=== PATIENT | female | born 1985 | race African-American/Black ===

== ENCOUNTER 2016-10-31 14:18 | Emergency (ER) | payer SELFPAY ==
[~2016-10-31 14:18] MED LIST: ALPR0.5T PO; HYDR-971 PO; IBUP-1060 PO
[2016-10-31 14:20] VITALS: BP 132/80
--- NOTE | 2016-10-31 14:48 | PHYS DOC ---
Past Medical History Past Medical History: No Pertinent History Past Surgical History: No Surgical History Alcohol Use: Occasionally Drug Use: None Adult General Chief Complaint Chief Complaint: PAIN ON URINATION HPI HPI Patient is a 31 year old presents emergency department stating that she's been having yellow vaginal discharge for the last week. She states for the last 2-3 days she's been having urinary frequency urgency or pain with urination. She states that she had increased her water intake as well as cranberry juice intake. She states this has not helped with the urinary symptoms. She denies any blood being in the urine. Patient denies any fever, chills or any nausea vomiting. She does state she sexually active with one partner without protection. She is worried about STDs. Review of Systems Review of Systems Constitutional: Denies fever or chills [] Eyes: Denies change in visual acuity, redness, or eye pain [] HENT: Denies nasal congestion or sore throat [] Respiratory: Denies cough or shortness of breath [] Cardiovascular: No additional information not addressed in HPI [] GI: Denies abdominal pain, nausea, vomiting, bloody stools or diarrhea [] : dysuria denies hematuria [] Musculoskeletal: Denies back pain or joint pain [] Integument: Denies rash or skin lesions [] Neurologic: Denies headache, focal weakness or sensory changes [] Current Medications Current Medications Current Medications Medications (Trade) Dose Ordered Sig/Johnny Start Time Stop Time Status Last Admin Dose Admin Azithromycin (Zithromax) 1,000 mg 1X ONCE 10/31/16 15:00 10/31/16 15:01 DC Ceftriaxone Sodium (Rocephin Im) 250 mg 1X ONCE 10/31/16 15:00 10/31/16 15:01 DC Metronidazole (Flagyl) 2,000 mg 1X ONCE 10/31/16 15:00 10/31/16 15:01 DC Allergies Allergies Allergies Coded Allergies Type Severity Reaction Last Updated Verified No Known Drug Allergies 08/08/15 No Physical Exam Physical Exam Constitutional: Well developed, well nourished, no acute distress, non-toxic appearance. [] HENT: Normocephalic, atraumatic, bilateral external ears normal, oropharynx moist, no oral exudates, nose normal. [] Eyes: PERRLA, EOMI, conjunctiva normal, no discharge. [] Neck: Normal range of motion, no tenderness, supple, no stridor. [] Cardiovascular:Heart rate regular rhythm, no murmur [] Lungs & Thorax: Bilateral breath sounds clear to auscultation [] Abdomen: Bowel sounds hypoactive, soft, no tenderness, no masses, no pulsatile masses. [] Skin: Warm, dry, no erythema, no rash. [] Back: No tenderness, no CVA tenderness. [] Extremities: No tenderness, no cyanosis, no clubbing, ROM intact, no edema. [] Neurologic: Alert and oriented X 3, normal motor function, normal sensory function, no focal deficits noted. [] Psychologic: Affect normal, judgement normal, mood normal. [] Vaginal exam: speculum exam with blood and white thick discharge noted in the vaginal vault. Manual exam: bilateral adnexal tenderness noted no CMT noted. Current Patient Data Vital Signs Vital Signs Date Time Temp Pulse Resp B/P Pulse Ox O2 Delivery O2 Flow Rate FiO2 10/31/16 14:20 98.2 69 18 100 Room Air 98.2 Lab Values Laboratory Tests Test 10/31/16 13:38 Urine Collection Type Void Urine Color Yellow Urine Clarity Clear Urine pH 6.0 Urine Specific Rainbow 1.025 Urine Protein Negativemg/dL (NEG-TRACE) Urine Glucose (UA) Negativemg/dL (NEG) Urine Ketones (Stick) Negativemg/dL (NEG) Urine Blood Trace (NEG) Urine Nitrite Negative (NEG) Urine Bilirubin Negative (NEG) Urine Urobilinogen Dipstick 1.0mg/dL (0.2 mg/dL) Urine Leukocyte Esterase Moderate (NEG) Urine RBC 1-2/HPF (0-2) Urine WBC 11-20/HPF (0-4) Urine Squamous Epithelial Cells Many/LPF Urine Bacteria Moderate/HPF (0-FEW) Urine Mucus Marked/LPF Microbiology 10/31/16 Wet Prep - Final, Complete EKG EKG [] Radiology/Procedures Radiology/Procedures [] Course & Med Decision Making Course & Med Decision Making Pertinent Labs and Imaging studies reviewed. (See chart for details) Patient with a positive urinalysis. Patient was positive for bacterial vaginosis. Due to the bilateral adnexal tenderness she will also be treated for PID. Patient was provided with signs and symptoms to return back to the emergency department. She was treated for STDs here in the emergency department as she was concerned for this. Patient agrees with discharge instructions treatment regimens and follow-up recommendations. [] Dragon Disclaimer Dragon Disclaimer This electronic medical record was generated, in whole or in part, using a voice recognition dictation system. Departure Departure Impression: Primary Impression: Bacterial vaginosis Additional Impressions: Urinary tract infection PID (acute pelvic inflammatory disease) Disposition: 01 HOME, SELF-CARE Condition: STABLE Referrals: DEV BERMAN MD (PCP) Patient Instructions: Bacterial Vaginosis, [id number]-[id number], Pelvic Inflammatory Disease, [id number], Urinary Tract Infection, Mgnj-ib-Dtls Additional Instructions: Activity as tolerated Medication as prescribed Avoid sexual intercourse for the next 2 weeks Drink plenty of fluids such as water and cranberry juice Avoid cranberry juice cocktail, carbonated beverages, caffeine, citrus fruits, alcohol as these are considered irritants to the bladder. Your cultures for STD will come back in approximately 3-4 days. You will be notified if the results are positive. Follow-up to primary care physician in the next 7-10 days to make sure you cleared the urinary tract infection. Return back to emergency prior signs symptoms of become worse. Scripts Nitrofurantoin Monohyd/M-Cryst (Macrobid 100 Mg Capsule)100 Mg Capsule1 Cap PO BID #14 CAP Prov:MARIA LUISA SOUZA APRN 10/31/16 Metronidazole (Flagyl)500 Mg Tablet1 Tab PO BID #14 TAB Prov:MARIA LUISA SOUZA APRN 10/31/16 Doxycycline Hyclate 100 Mg Capsule1 Cap PO BID #28 CAP Prov:MARIA LUISA SOUZA APRN 10/31/16 Problem Qualifiers MARIA LUISA SOUZA APRN Oct 31, 2016 14:48
[2016-10-31 14:53] LABS: BILIRUBIN,URINE NEGATIVE (NEG); GLUCOSE,URINE NEGATIVE (NEG); NITRITE,URINE NEGATIVE (NEG); PROTEIN,URINE NEGATIVE (NEG-TRACE)
[2016-10-31] MEDS ORDERED: METRONIDAZOLE 500 MG TABLET. PO ONE (15:00)
[2016-10-31] MEDS ORDERED: CEFTRIAXONE IM 250 MG VIAL. IM ONE (15:00)
[2016-10-31] MEDS ORDERED: AZITHROMYCIN 250 MG TABLET. PO ONE (15:00)
[2016-10-31 15:01] LABS: BACTERIA,URINE MODERATE /HPF (0-FEW); SQUAMOUS EPITHELIAL CELL,UR MANY /LPF
[2016-10-31] MEDS ORDERED: DOXY100C2 PO (15:26)
[2016-10-31] MEDS ORDERED: METR500T PO (15:26)
[2016-10-31] MEDS ORDERED: NITR100C62 PO (15:26)
[2016-10-31] MEDS ORDERED: PHEN100T82 PO (15:28)
== END 2016-10-31 15:55 | disposition home or self-care (01) ==
LOC: ER 14:18
DX: N76.0 Acute vaginitis (principal); N39.0 Urinary tract infection, site not specified; N73.9 Female pelvic inflammatory disease, unspecified
CPT/HCPCS: 81001; 81025; 87086; 87491; 87591; 96372; 99284; J0696; Q0111; Q0144

== ENCOUNTER 2018-02-14 20:01 | Emergency (ER) | payer OTHER ==
[2018-02-14] MEDS: HYDROcodone/APAP 5/325MG 1 TAB TABLET PO (21:16)
[2018-02-14] MEDS: ASPIRIN 325 MG TABLET PO (21:16)
[2018-02-14] MEDS: CYCLOBENZAPRINE 10 MG TABLET. PO (21:16)
[2018-02-14 21:38] LABS: URINE HCG POC HCG NEGATIVE (Negative)
[2018-02-14 21:39] LABS: ADD MAN DIFF? NO
[2018-02-14 21:42] LABS: BASO # 0.1 x10^3/uL (0.0-0.2); BASO % 1 % (0-3); BILIRUBIN,URINE NEGATIVE (NEG); CLARITY,URINE CLEAR; COLOR,URINE YELLOW; EOS # 0.1 x10^3/uL (0.0-0.7); EOS % 1 % (0-3); GLUCOSE,URINE NEGATIVE (NEG); HEMATOCRIT 42.1 % (36.0-47.0); HEMOGLOBIN 14.3 g/dL (12.0-15.5); LYMPH # 3.1 x10^3/uL (1.0-4.8); LYMPH % 25 % (24-48); MEAN CORPUSCULAR HEMOGLOBIN 30 pg (25-35); MEAN CORPUSCULAR HGB CONC 34 g/dL (31-37); MEAN CORPUSCULAR VOLUME 87 fL (79-100); MONO # 0.7 x10^3/uL (0.0-1.1); MONO % 6 % (0-9); NEUT # 8.4 x10^3uL (1.8-7.7); NEUT % 68 % (31-73); NITRITE,URINE NEGATIVE (NEG); PLATELET COUNT 265 x10^3/uL (140-400); PROTEIN,URINE NEGATIVE (NEG-TRACE); RED BLOOD COUNT 4.84 x10^6/uL (3.50-5.40); RED CELL DISTRIBUTION WIDTH 13.7 % (11.5-14.5); WHITE BLOOD COUNT 12.5 x10^3/uL (4.0-11.0)
[2018-02-14 21:49] LABS: BACTERIA,URINE FEW /HPF (0-FEW); RBC,URINE 0 /HPF (0-2); SQUAMOUS EPITHELIAL CELL,UR MOD /LPF
[2018-02-14 21:56] LABS: D-DIMER 1.78 ug/mlFEU (0.00-0.50)
[2018-02-14 21:57] LABS: AMPHETAMINE/METHAMPHETAMINE NEG (NEG); BARBITURATES NEG (NEG); BENZODIAZEPINES NEG (NEG); CANNABINOIDS NEG (NEG); COCAINE NEG (NEG); ETHANOL, URINE NEG (NEG); METHADONE NEG (NEG); OPIATES NEG (NEG); PHENCYCLIDINE NEG (NEG)
[2018-02-14 22:00] LABS: ANION GAP 9 (6-14); BLOOD UREA NITROGEN 13 mg/dL (7-20); CALCIUM 8.9 mg/dL (8.5-10.1); CARBON DIOXIDE 29 mmol/L (21-32); CHLORIDE 102 mmol/L (98-107); GFR 78.8; GLUCOSE 105 mg/dL (70-99); POTASSIUM 3.8 mmol/L (3.5-5.1); SODIUM 140 mmol/L (136-145)
[2018-02-14 22:03] LABS: TROPONINI < 0.017 ng/mL (0.000-0.055)
[2018-02-14] MEDS ORDERED: CONTRAST GIVEN. MC (22:15)
[2018-02-14 22:18] LABS: NT-PRO BNP 59 pg/mL (0-124)
[2018-02-14 22:18] LABS: CKMB MASS < 0.5 ng/mL (0.0-3.6); CREATINE KINASE 49 U/L (26-192)
[2018-02-14] MEDS: IOHEXOL 300 MG/ML 100ML VIAL. IV (22:22)
== END 2018-02-14 23:45 | disposition home or self-care (01) ==
LOC: ER 23:45
DX: R07.89 Other chest pain (principal); N63.0 Unspecified lump in unspecified breast
CPT/HCPCS: 36415; 71045; 71275; 80048; 80307; 81001; 81025; 82553; 83735; 83880; 84484; 85025; 85379; 87086; 93005; 99285-25; Q9967

== ENCOUNTER 2018-02-15 19:26 | Emergency (ER) | payer OTHER ==
[2018-02-15 20:23] LABS: ADD MAN DIFF? NO
[2018-02-15 20:25] LABS: BASO # 0.1 x10^3/uL (0.0-0.2); BASO % 1 % (0-3); EOS # 0.1 x10^3/uL (0.0-0.7); EOS % 1 % (0-3); HEMATOCRIT 42.9 % (36.0-47.0); HEMOGLOBIN 14.7 g/dL (12.0-15.5); LYMPH # 2.9 x10^3/uL (1.0-4.8); LYMPH % 29 % (24-48); MEAN CORPUSCULAR HEMOGLOBIN 30 pg (25-35); MEAN CORPUSCULAR HGB CONC 34 g/dL (31-37); MEAN CORPUSCULAR VOLUME 86 fL (79-100); MONO # 0.7 x10^3/uL (0.0-1.1); MONO % 7 % (0-9); NEUT # 6.3 x10^3uL (1.8-7.7); NEUT % 62 % (31-73); PLATELET COUNT 260 x10^3/uL (140-400); RED BLOOD COUNT 4.96 x10^6/uL (3.50-5.40); RED CELL DISTRIBUTION WIDTH 13.9 % (11.5-14.5); WHITE BLOOD COUNT 10.1 x10^3/uL (4.0-11.0)
[2018-02-15] MEDS: diphenhydrAMINE 50 MG/ML VIAL IVP (20:38)
[2018-02-15] MEDS: KETOROLAC 30 MG/ML INJ. IV (20:38)
[2018-02-15] MEDS: IV NORMAL SALINE 1000ML BAG 1,000 ML IV (20:38)
[2018-02-15] MEDS: DEXAMETHASONE SOD PHOS 20 MG/5 ML VIAL. IV (20:38)
[2018-02-15] MEDS: METOCLOPRAMIDE HCL 10 MG/2 ML VIAL. IV (20:38)
[2018-02-15 20:39] LABS: ANION GAP 7 (6-14); BLOOD UREA NITROGEN 9 mg/dL (7-20); BUN/CREATININE RATIO 10 (6-20); CALCIUM 9.6 mg/dL (8.5-10.1); CARBON DIOXIDE 28 mmol/L (21-32); CHLORIDE 103 mmol/L (98-107); CREATININE 0.9 mg/dL (0.6-1.0); GLUCOSE 100 mg/dL (70-99); SODIUM 138 mmol/L (136-145)
[2018-02-15 20:44] LABS: ALBUMIN 3.6 g/dL (3.4-5.0); ALBUMIN/GLOBULIN RATIO 0.8 (1.0-1.7); ALK PHOS 70 U/L (46-116); ALT (SGPT) 20 U/L (14-59); AST (SGOT) 13 U/L (15-37); TOTAL BILIRUBIN 0.3 mg/dL (0.2-1.0)
== END 2018-02-15 22:27 | disposition home or self-care (01) ==
LOC: ER 19:26
DX: R42 Dizziness and giddiness (principal); R51 Headache
CPT/HCPCS: 36415; 80053; 83735; 85025; 93005; 96361; 96374; 96375; 99285-25; J1100; J1200; J1885; J2765; J7030

== ENCOUNTER 2019-02-13 19:15 | Emergency (ER) | payer OTHER ==
[~2019-02-13] VITALS: Ht 175.3 cm; Wt 127.0 kg
[~2019-02-13 19:15] MED LIST changes: +AZIT500T4 PO; +BUTA1TAB23 PO; +CEFI200S PO; +DOXY100C2 PO; +FLUC150T PO; +HYDR-3164 PO; -HYDR-971 PO; +METR500T PO; +NAPR-683 PO; +NITR100C62 PO; +ONDA4TAB7 PO; +PHEN100T82 PO
[2019-02-13 20:42] VITALS: BP 132/80
[2019-02-13] MEDS ORDERED: BENZ100C PO (20:49)
--- NOTE | 2019-02-13 20:49 | PHYS DOC ---
Past Medical History Past Medical History: Ovarian Cyst, Uterine Fibroids Additional Past Medical Histor: FIBROIDS (MIRLANDE CRANDALL APRN) Past Surgical History: Other Additional Past Surgical Histo: FIBROIDS REMOVED (MIRLANDE CRANDALL APRN) Alcohol Use: Occasionally Drug Use: None (MIRLANDE CRANDALL APRN) Adult General Chief Complaint Chief Complaint: SORE THROAT HPI HPI Patient is a 33 year old [female] who presents with [sore throat and mild cough. Patient reports she has had the symptoms for the last 2 weeks. Reports when symptoms first started she had taken several different medications, which did seem to help her discomfort, she says she woke and extend without any more pus pockets and she had felt better to 3 days later. Reports since that time, she is continued to have a mild, dry cough. Reports it is worse at night, but does happen throughout the day. denies any fevers states she has been trying some very: And other fjhn-ftn-vtwgfog cough medicines which have seemed to help her coughing somewhat but have not stopped her coughing] (MIRLANDE CRANDALL APRN) Review of Systems Review of Systems Constitutional: Denies fever or chills [] Eyes: Denies change in visual acuity, redness, or eye pain [] HENT: Denies nasal congestion reports she has had a sore throat for 2 weeks[] Respiratory: Reports dry, nonproductive cough denies shortness of breath [] Cardiovascular: No additional information not addressed in HPI [] GI: Denies abdominal pain, nausea, vomiting, bloody stools or diarrhea [] : Denies dysuria or hematuria [] Musculoskeletal: Denies back pain or joint pain [] Integument: Denies rash or skin lesions [] Neurologic: Denies headache, focal weakness or sensory changes [] Endocrine: Denies polyuria or polydipsia [] All other systems were reviewed and found to be within normal limits, except as documented in this note. (MIRLANDE CRANDALL APRN) Allergies Allergies Allergies Coded Allergies Type Severity Reaction Last Updated Verified No Known Drug Allergies 08/08/15 No (WILEY CUENCA MD) Physical Exam Physical Exam Constitutional: Well developed, well nourished, no acute distress, non-toxic appearance. [] HENT: Normocephalic, atraumatic, bilateral external ears normal, oropharynx moist, no oral exudates, nose normal. Tonsils 1+, no erythema, no exudates, uvula midline. Minimal amount of postnasal drainage noted posteriorly. [] Eyes: PERRLA, EOMI, conjunctiva normal, no discharge. [] Neck: Normal range of motion, no tenderness, supple, no stridor. [] Cardiovascular:Heart rate regular rhythm, no murmur [] Lungs & Thorax: Bilateral breath sounds clear to auscultation, occasional faint dry cough noted. [] Abdomen: Bowel sounds normal, soft, no tenderness, no masses, no pulsatile masses. [] Skin: Warm, dry, no erythema, no rash. [] Back: No tenderness, no CVA tenderness. [] Extremities: No tenderness, no cyanosis, no clubbing, ROM intact, no edema. [] Neurologic: Alert and oriented X 3, normal motor function, normal sensory function, no focal deficits noted. [] Psychologic: Affect normal, judgement normal, mood normal. [] (MIRLANDE CRANDALL APRN) Current Patient Data Vital Signs Vital Signs Date Time Temp Pulse Resp B/P (MAP) Pulse Ox O2 Delivery O2 Flow Rate FiO2 02/13/19 20:42 99.0 91 18 132/80 (97) 99 Room Air 99.0 (WILEY CUENCA MD) EKG EKG [] (MIRLANDE CRANDALL APRN) Radiology/Procedures Radiology/Procedures [] (MIRLANDE CRANDALL APRN) Course & Med Decision Making Course & Med Decision Making Pertinent Labs and Imaging studies reviewed. (See chart for details) [Discussed findings with patient, discussed consideration for Tessalon Perles, finished agreement to try them. Discussed continued use of medicines. Discussed considering use of Flonase or Zyrtec or other decongestant as well to help clear postnasal drip which may be causing her cough. Discussed following up with primary care for further considerations for further concerns in agreement without questions] (MIRLANDE CRANDALL APRN) Course & Med Decision Making Staff Physician Addendum: I was working in the ER during the course of this patient's visit. I was available for consultation as needed, but I was not directly involved in the care of this patient. (WILEY CUENCA MD) Dragon Disclaimer Dragon Disclaimer This electronic medical record was generated, in whole or in part, using a voice recognition dictation system. (MIRLANDE CRANDALL APRN) Departure Departure Impression: Primary Impression: Cough Additional Impression: Post-nasal drainage Disposition: 01 HOME, SELF-CARE Condition: GOOD Referrals: UNKNOWN PCP NAME (PCP) Patient Instructions: Cough, Adult Additional Instructions: As we discussed, he can consider using Flonase or Zyrtec or Claritin some Ativan as a decongestant to help decrease her postnasal drip which may be causing some of her cough. You can use the cough medications, Tessalon Perles, as prescribed for your cough. He may take some time to get over the cough and feel better. Follow-up with her primary care provider for other concerns Scripts Benzonatate (TESSALON PERLE) 100 Mg Capsule 100 MG PO TID PRN for COUGH for 7 Days, #21 CAP Prov: MIRLANDE CRANDALL APRN 02/13/19 Problem Qualifiers MIRLANDE CRANDALL APRN Feb 13, 2019 20:49 WILEY CUENAC MD Feb 14, 2019 21:45
== END 2019-02-13 21:07 | disposition home or self-care (01) ==
LOC: ER 19:15
DX: R05 Cough (principal); R09.82 Postnasal drip; J02.9 Acute pharyngitis, unspecified
CPT/HCPCS: 99283

== ENCOUNTER → 2020-01-26 | Outpatient (CLI) | payer BC, OTHER ==
[~2020-01-26] MED LIST changes: +BENZ100C PO
== END | disposition home or self-care (01) ==
LOC: LAB 13:35
PROVIDERS: ATTEND Obstetrics & Gynecology
DX: Z01.818 Encounter for other preprocedural examination (principal); Z11.59 Encounter for screening for other viral diseases; N92.0 Excessive and frequent menstruation with regular cycle
CPT/HCPCS: U0003-CS

== ENCOUNTER 2020-02-01 08:50 | Observation (INO) | payer BC ==
[~2020-02-01] VITALS: Ht 167.6 cm; Wt 136.0 kg
[2020-02-01] VITALS (9 sets, daily range): BP systolic 102–128; BP diastolic 62–72
[~2020-02-01 08:50] MED LIST changes: +ASPI1TAB31 PO; +HYDROmorphone 2 MG/ML VIAL IV PRN; +IV RINGERS,LACTATED 1000ML 1,000 ML IV SCH; +LIDOCAINE 1% PF 2 ML VIAL. ID PRN; +LORA10TA55 PO; +METHYLENE BLUE 0.5% 10ml AMPULE. ONE; +MORPHINE SULFATE 2 MG/ML VIAL. IV PRN; +PROCHLORPERAZINE 10 MG/2 ML VIAL. IV PRN; +ceFAZolin SODIUM 3 GM in IV DEXTROSE 5% 100ML 100 ML IV PRN; +fentaNYL PF VIAL 100 MCG/2 ML VIAL IV PRN
[2020-02-01] MEDS ORDERED: PROPOFOL 10 MG/ML (20ML) VIAL. IV ONE (09:19)
[2020-02-01] MEDS ORDERED: DEXAMETHASONE SOD PHOS 4 MG/ML VIAL ONE (09:19)
[2020-02-01] MEDS ORDERED: ONDANSETRON PF 4 MG/2 ML VIAL. ONE (09:19)
[2020-02-01] MEDS ORDERED: LIDOCAINE 2% PF 5 ML VIAL. ONE (09:19)
[2020-02-01] MEDS ORDERED: SEVOFLURANE 61 TO 120 MINUTES. IH ONE (09:19)
[2020-02-01] MEDS ORDERED: KETOROLAC 30 MG/ML VIAL. ONE (09:19)
[2020-02-01] MEDS ORDERED: ROCURONIUM 50 MG/5 ML VIAL. ONE ×2 (09:20→12:11)
[2020-02-01] MEDS ORDERED: fentaNYL PF VIAL 100 MCG/2 ML VIAL ONE ×2 (09:20→15:07)
[2020-02-01] MEDS ORDERED: MIDAZOLAM HCL/PF 2 MG/2 ML VIAL. ONE (09:29)
[2020-02-01 09:48] LABS: BASO % 1 % (0-3); EOS % 1 % (0-3); HEMATOCRIT 40.6 % (36.0-47.0); HEMOGLOBIN 13.5 g/dL (12.0-15.5); LYMPH # 2.2 x10^3/uL (1.0-4.8); LYMPH % 26 % (24-48); MEAN CORPUSCULAR HEMOGLOBIN 28 pg (25-35); MEAN CORPUSCULAR HGB CONC 33 g/dL (31-37); MEAN CORPUSCULAR VOLUME 84 fL (79-100); MONO # 0.5 x10^3/uL (0.0-1.1); MONO % 6 % (0-9); NEUT % 68 % (31-73); PLATELET COUNT 269 x10^3/uL (140-400); RED BLOOD COUNT 4.81 x10^6/uL (3.50-5.40); RED CELL DISTRIBUTION WIDTH 14.6 % (11.5-14.5); WHITE BLOOD COUNT 8.8 x10^3/uL (4.0-11.0)
[2020-02-01] MEDS ORDERED: HYDROmorphone 2 MG/ML VIAL ONE (12:44)
[2020-02-01] MEDS ORDERED: NEOSTIGMINE METHYLSULFATE 5 MG/5 ML SYRINGE. ONE (12:47)
[2020-02-01] MEDS ORDERED: GLYCOPYRROLATE 1 MG/5 ML VIAL. ONE (12:47)
[2020-02-01] MEDS ORDERED: oxyCODONE/APAP 5/325 1 TAB TABLET PO PRN (14:30)
[2020-02-01] MEDS ORDERED: diphenhydrAMINE 50 MG/ML VIAL IV PRN (14:30)
[2020-02-01] MEDS ORDERED: diphenhydrAMINE HCL 25 MG CAPSULE PO PRN (14:30)
[2020-02-01] MEDS ORDERED: NALOXONE 0.4 MG/ML VIAL. IV PRN (14:30)
[2020-02-01] MEDS ORDERED: IV NORMAL SALINE 1000ML BAG 1,000 ML IV SCH (14:30)
[2020-02-01] MEDS ORDERED: MORPHINE SULFATE 2 MG/ML VIAL. IV PRN ×2 (14:30)
[2020-02-01] MEDS ORDERED: 0.9 % SODIUM CHLORIDE 10 ML DISP.SYRIN. IV PRN (14:30)
[2020-02-01] MEDS ORDERED: DEXTROSE 50% 25 GM / 50ML DISP.SYRIN. IV PRN (14:30)
[2020-02-01] MEDS ORDERED: IBUPROFEN 200 MG TABLET. PO PRN (14:30)
--- NOTE | 2020-02-01 14:52 | PDOC4 ---
OPERATIVE NOTE: PreOp Dx: 1. Menorrhagia, 2. Dysmenorrhea, 3. Fibroids, 4. Irregular periods PostOp Dx: same PROCEDURE: Laparoscopic-assisted vaginal hysterectomy with bilateral salpingectomy. ANESTHESIA: General endotracheal intubation. ESTIMATED BLOOD LOSS: 750 mL. URINE OUTPUT: Clear. FINDINGS: Normal uterus, tubes, and ovaries COMPLICATIONS: None. SPECIMENS REMOVED: Uterus, tubes, and cervix. POLA COSTELLO MD Feb 01, 2020 14:52
[2020-02-01] MEDS ORDERED: PROCHLORPERAZINE 10 MG/2 ML VIAL. ONE (15:07)
[2020-02-01] MEDS: IV DEXTROSE 5 %-0.45 % NACL 1,000 ML IV SCH ×2 (15:10→20:11)
--- NOTE | 2020-02-01 15:16 | OP ---
DATE OF SURGERY: 02/01/2020 PREOPERATIVE DIAGNOSES: 1. Menorrhagia. 2. Dysmenorrhea. 3. Fibroids. 4. Irregular periods. POSTOPERATIVE DIAGNOSES: 1. Menorrhagia. 2. Dysmenorrhea. 3. Fibroids. 4. Irregular periods. PROCEDURE: Laparoscopic-assisted vaginal hysterectomy with bilateral salpingectomy. ANESTHESIA: General endotracheal intubation. ESTIMATED BLOOD LOSS: 750 mL. URINE OUTPUT: Clear. FINDINGS: Normal uterus, tubes and ovaries. COMPLICATIONS: None. SPECIMENS REMOVED: Uterus, tubes, and cervix. DESCRIPTION OF PROCEDURE: The patient was taken to the operating room where general endotracheal intubation was obtained without difficulty. The patient was prepped and draped in normal sterile fashion. Attention was first turned to the vagina where a speculum was placed to visualize the cervix. The anterior lip of the cervix was then grasped with a single tooth tenaculum and acorn uterine manipulator was then placed into the uterine cavity. At that point, a Langley catheter was placed in the patient's bladder. Attention was then turned to the abdomen where a 5 mm skin incision was made in her infraumbilical fold. At that point, a Veress needle was introduced into the incision. The abdomen was then insufflated to 15 mmHg. At that point, Veress needle was removed and a 5 mm trocar was then placed directly into the abdomen. Placement was confirmed with the laparoscope. At that point, a second trocar was then placed on the left approximately two-thirds between ischial spine and umbilicus first by making a 5 mm skin incision, then by placing a 5 mm trocar under direct visualization of the laparoscope. Attention was then turned to the right where a 5 mm trocar was then placed in similar fashion, two-thirds between the ischial spine and the umbilicus by first making a 5 mm skin incision and then placing the 5-mm trocar under direct visualization of the laparoscope. Visualization of the pelvis revealed relatively normal anatomy. At that point, attention was turned to the left where the left tube was followed out to the fimbria. The fimbria was then grasped. At that point, the tube was then from the ovary with the LigaSure device. Once the tube was the ovary at the level of the uterus, the LigaSure device was used to cut through the round ligament on the left. The LigaSure device was then used to serially coagulate and cut to the level of the uterine artery. At that point, the peritoneum was undermined to allow for the creation of a bladder flap. The bladder flap was then brought to the midline. A few additional bites were taken of the uterine pedicles on the left with the LigaSure device. At that point, attention was then turned to the right where the right tube was followed out to the fimbria. The fimbria was then grasped. The tube was then from the ovary with the LigaSure device. When the tube had reached the level of the uterus, the right round ligament was then cut with the LigaSure device. Uterine pedicles on the right were then serially coagulated and cut with the LigaSure device to the level of the uterine artery. At that point, the peritoneum was undermined to complete the bladder flap. A few additional bites were then taken of the right pedicles. At that point, good hemostasis was noted, the instruments were then removed and attention was then turned to the vagina. At that point, the cervix was circumferentially cut with the Bovie device. At that point, the pubovesical fascia was then dissected from the bladder with Metzenbaum scissors. Once the anterior cul-de-sac was entered, attention was then turned to the posterior cul-de-sac where Shook scissors were used to enter the peritoneum posteriorly. The posterior peritoneum was tagged to help keep the posterior weighted speculum in the perineal cavity. At that point, Zackery clamps were used to grasp the left uterosacral ligament. This was then cut and tagged with 0 Vicryl. This was performed on the right side where the right uterosacral ligament was then grasped with a Zackery clamp, cut and tagged. Once this had been performed, the uterus was then serially clamped, cut, and tied until all the pedicles were free. At that point, the uterus was delivered. At that point, good hemostasis was noted. The tag on the posterior peritoneum was cut and removed. The vaginal cuff was then closed first by making a mlkede-gn-nemox stitch at the left lateral edge with the second pass including the left uterosacral ligament. This was then tagged. Attention was then turned to the right side of the incision, which again was closed by first making a lvbkyh-du-uaoch stitch and placed in the second pass through the right uterosacral ligament. Three additional [id number]-pg-qkpuh stitches were used to close the remainder of the cuff. The cuff was then irrigated. Good hemostasis was noted. At that point, all the stitches were cut. Attention was then turned to the abdomen. Once again, survey of the vaginal cuff laparoscopically revealed good hemostasis. The ureters were observed to be peristalsing. The peritoneum was then irrigated again and good hemostasis was noted. At that point, all the instruments were removed as well as the trocars. The laparoscopic incisions were then closed with 4-0 Monocryl in an interrupted fashion. At that point, the patient tolerated the procedure well and was taken to the recovery room in stable condition. Sponges, laps, and needles were correct x 3. POLA COSTELLO MD DR: CHUCK/mega JOB#: [id number] / [id number] SOLITARIO
[2020-02-01] MEDS ORDERED: ONDANSETRON PF 4 MG/2 ML VIAL. IVP PRN (19:45)
[2020-02-01] MEDS: KETOROLAC 15 MG/ML VIAL. IV PRN (20:01)
[2020-02-01] MEDS: DOCUSATE SODIUM 100 MG CAPSULE. PO SCH (20:11)
[2020-02-01] MEDS: oxyCODONE/APAP 5/325 1 TAB TABLET PO PRN (22:40)
[2020-02-02] MEDS: oxyCODONE/APAP 5/325 1 TAB TABLET PO PRN ×2 (00:08→12:25)
[2020-02-02 00:11] VITALS: BP 114/66
[2020-02-02 04:36] LABS: BASO % 0 % (0-3); EOS % 0 % (0-3); HEMATOCRIT 31.6 % (36.0-47.0); HEMOGLOBIN 10.5 g/dL (12.0-15.5); LYMPH # 1.1 x10^3/uL (1.0-4.8); LYMPH % 8 % (24-48); MEAN CORPUSCULAR HEMOGLOBIN 28 pg (25-35); MEAN CORPUSCULAR HGB CONC 33 g/dL (31-37); MEAN CORPUSCULAR VOLUME 85 fL (79-100); MONO # 0.8 x10^3/uL (0.0-1.1); MONO % 6 % (0-9); NEUT % 87 % (31-73); PLATELET COUNT 271 x10^3/uL (140-400); RED BLOOD COUNT 3.74 x10^6/uL (3.50-5.40); RED CELL DISTRIBUTION WIDTH 15.3 % (11.5-14.5)
[2020-02-02 04:46] LABS: CALCIUM 8.3 mg/dL (8.5-10.1); GFR 77.7; POTASSIUM 3.8 mmol/L (3.5-5.1)
[2020-02-02 05:03] LABS: % BANDS 1 % (0-9); % LYMPHS 7 % (24-48); % MONOS 2 % (0-10); % SEGS 90 % (35-66); PLT ESTIMATE ADEQUATE (ADEQUATE)
[2020-02-02 05:30] VITALS: BP 122/70
[2020-02-02] MEDS: KETOROLAC 15 MG/ML VIAL. IV PRN (05:55)
[2020-02-02] MEDS ORDERED: ONDANSETRON ODT 4 MG TAB.RAPDIS. PO PRN (07:00)
[2020-02-02] MEDS ORDERED: OXYC1TAB15 PO (08:25)
[2020-02-02] MEDS ORDERED: DOCU-109 PO (08:25)
[2020-02-02] MEDS ORDERED: IBUP-1060 PO (08:25)
--- NOTE | 2020-02-02 09:28 | PDOC ---
DOCUMENTATION ANALYST PROGRESS NOTE Subjective: The pt with good pain control. Teresa PO. Voiding. Minimal lochia. Pt with some nausea last night and this am. Objective: Vital Signs: Vital Signs Date Time Temp Pulse Resp B/P (MAP) Pulse Ox O2 Delivery O2 Flow Rate FiO2 02/01/20 09:22 97.7 83 20 97 97.7 02/01/20 09:25 122/81 Room Air 02/01/20 14:17 10 Vital Signs Date Time Temp Pulse Resp B/P (MAP) Pulse Ox O2 Delivery O2 Flow Rate FiO2 02/02/20 05:30 98.0 101 20 122/70 (87) 95 Room Air 98.0 02/01/20 22:40 10.0 Labs: Laboratory Tests Test 02/02/20 03:00 White Blood Count 15.0 x10^3/uL (4.0-11.0) H Red Blood Count 3.74 x10^6/uL (3.50-5.40) Hemoglobin 10.5 g/dL (12.0-15.5) L Hematocrit 31.6 % (36.0-47.0) L Mean Corpuscular Volume 85 fL (79-100) Mean Corpuscular Hemoglobin 28 pg (25-35) Mean Corpuscular Hemoglobin Concent 33 g/dL (31-37) Red Cell Distribution Width 15.3 % (11.5-14.5) H Platelet Count 271 x10^3/uL (140-400) Neutrophils (%) (Auto) 87 % (31-73) H Lymphocytes (%) (Auto) 8 % (24-48) L Monocytes (%) (Auto) 6 % (0-9) Eosinophils (%) (Auto) 0 % (0-3) Basophils (%) (Auto) 0 % (0-3) Neutrophils # (Auto) 13.0 x10^3/uL (1.8-7.7) H Lymphocytes # (Auto) 1.1 x10^3/uL (1.0-4.8) Monocytes # (Auto) 0.8 x10^3/uL (0.0-1.1) Eosinophils # (Auto) 0.0 x10^3/uL (0.0-0.7) Basophils # (Auto) 0.0 x10^3/uL (0.0-0.2) Segmented Neutrophils % 90 % (35-66) H Band Neutrophils % 1 % (0-9) Lymphocytes % 7 % (24-48) L Monocytes % 2 % (0-10) Platelet Estimate Adequate (ADEQUATE) Sodium Level 140 mmol/L (136-145) Potassium Level 3.8 mmol/L (3.5-5.1) Chloride Level 105 mmol/L (98-107) Carbon Dioxide Level 23 mmol/L (21-32) Anion Gap 12 (6-14) Blood Urea Nitrogen 8 mg/dL (7-20) Creatinine 1.0 mg/dL (0.6-1.0) Estimated GFR (Cockcroft-Gault) 77.7 Glucose Level 139 mg/dL (70-99) H Calcium Level 8.3 mg/dL (8.5-10.1) L Laboratory Tests 02/02/20 03:00 Laboratory Tests 02/02/20 03:00 Laboratory Tests 02/02/20 03:00 Physical Exam: GENERAL: No apparent distress. Alert and oriented. HEENT: Head normocephalic, atraumatic. NECK: Supple LUNGS: Clear to auscultation. HEART: RRR, S1, S2 present, pulses intact ABDOMEN: Soft, positive bowel sounds. EXTREMITIES: No cyanosis or edema. NEUROLOGIC: Normal speech, normal tone PSYCHIATRIC: Normal affect, normal mood. SKIN: No ulceration. Port site: dressing dry Assessment & Plan: A/P 34y POD #1 s/p LAVH/BS 1.) PO doing well, a little nausea 2.) Indications - Menorrhagia, Dysmenorrhea, Fibroids, Irregular periods 3.) Path pending 4.) Hgb 13.5 -> 10.5 5.) Glucose a little high on BMP (139) POLA COSTELLO MD Feb 02, 2020 09:28
[2020-02-02] MEDS: DOCUSATE SODIUM 100 MG CAPSULE. PO SCH (09:53)
[2020-02-02 11:33] VITALS: BP 111/55
[2020-02-02 14:10] VITALS: BP 120/78
--- NOTE | 2020-02-02 14:10 | NUR ---
Discharge instructions given to pt. pt verbalized understanding. pt discharged home
--- NOTE | 2020-02-02 14:58 | DS ---
DATE OF DISCHARGE: 02/02/2020 ADMISSION DIAGNOSES: 1. Menorrhagia. 2. Dysmenorrhea. 3. Fibroids. 4. Irregular periods. DISCHARGE DIAGNOSES: 1. Menorrhagia. 2. Dysmenorrhea. 3. Fibroids. 4. Irregular periods. PROCEDURE: Laparoscopic-assisted vaginal hysterectomy with bilateral salpingectomy. BRIEF HOSPITAL COURSE: The patient is a 34-year-old 4, para 2-0-0-2, who presented to the office with heavy painful bleeding and history of fibroids and cysts. The patient had tried measures in the past such as an IUD as well as endometrial ablation and also removal of fibroids with TruClear with minimal success. The patient desired definitive surgery. The patient underwent a laparoscopic vaginal hysterectomy on 02/01/2020. See operative note for full detail. By day #1, the patient was meeting all discharge criteria and desired discharge home. Of note, the patient was having a little nausea the night of surgery and the morning hours which resolved. Also, her preoperative hemoglobin was found to be 13.5 and postoperatively was found to be 10.5. DISCHARGE INSTRUCTIONS: The patient was told not to lift anything greater than 20 pounds, have pelvic rest for 6 weeks, not to drive on narcotics. The patient was to call if she had fevers, chills, nausea, vomiting, abdominal pain or any additional questions or concerns. FOLLOWUP APPOINTMENT: The patient was to follow up in the office in 1 week's time for a visit. The appointment had previously been given to her. DISCHARGE MEDICATIONS: The patient was given a prescription for Percocet 5 mg, 15 pills; Motrin 800 mg 30 pills and Colace 100 mg 30 pills. POLA COSTELLO MD DR: CHUCK/mega JOB#: [id number] / [id number]
--- NOTE | 2020-02-02 18:06 | PATHOLOGY ---
[facility] Accession Number: [id number] . 01 Material submitted: . uterus - CERVIX,UTERUS AND TUBES . 01 Clinical history: . Menorrhagia, heavy bleeding . 02 Diagnosis: Uterus and attached right fallopian tube and detached left fallopian tube, hysterectomy with bilateral salpingectomy: - Mild chronic inflammation of exocervix. - Chronic cervicitis with focal squamous metaplasia. - Nabothian cysts, few. - Secretory endometrium. - Adenomyosis, uterine corpus, subbasal, with mild myometrial hypertrophy (uterine weight 153 grams). - Paratubal cysts and cystic [place] rests, bilateral. (PEPEM:brian; 02/02/2020) [facility] 02/02/2020 1549 Local . 02 Comment: There is no atypia or evidence of malignancy. (TIARA:brian; 02/02/2020) . 02 Electronically signed: . Dread Benavides MD, Pathologist NPI- [id number] . 01 Gross description: . The specimen is received in formalin labeled "Hope Waldrop, cervix, uterus and tubes". Received is a 153 g, 10.4 x 6.5 x 5.2 cm uterus with attached cervix, attached right fallopian tube weighing 4 g, and detached left fallopian tube weighing 4 g. The uterine serosa is pink-tian and smooth to wrinkled in appearance. The 1.4 cm cervical os is surrounded by pink-tian, smooth to disrupted ectocervical mucosa. The uterus is oriented using the peritoneal reflection and the anterior paracervical margin is inked black. The uterus is opened laterally to reveal a pale tian, partially cystic endocervical canal measuring 3.3 cm in length. The endometrial cavity is triangular measuring 5.3 cm in length by 2.9 cm in width. The endometrium is pale tina, glistening in appearance and measures up to 0.4 cm in thickness. Serial sectioning reveals a tian-pink, trabeculated myometrium measuring 2.4 cm in thickness with no grossly distinct nodules or lesions. . The left fimbriated fallopian tube measures 4.5 cm in length by 0.5 cm in diameter. The serosal surface displays multiple attached paratubal cysts ranging in size from 0.4 to 0.5 cm filled with clear fluid. The serosal surface is inked black. Sectioning reveals a patent lumen. . The right fimbriated fallopian tube measures 4.5 cm in length by 0.5 cm in diameter. The serosal surface displays multiple attached paratubal cysts ranging in size from 0.6 to 1.2 cm filled with clear fluid. Sectioning reveals a pinpoint to patent lumen. The specimen is submitted representatively as follows: . 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 (CAA; 02/01/2020) [facility] 02/02/2020 1544 Local . 02 Pathologist provided ICD-10: N72, N87.9, N88.8, N80.0, N85.2, N83.8 . 02 CPT . 799735 Specimen Comment: Report sent to Performed at: 01 [facility] [address], [place] [id number] MD Tyson Khalil MD Phone: [phone] Performed at: 02 [facility] [address] [place], [place] [id number] MD Dread Benavides MD Phone: [phone]
== END 2020-02-02 14:45 | disposition home or self-care (01) ==
LOC: SURG 08:50 → 3 NORTH 14:30
PROVIDERS: ADMIT Obstetrics & Gynecology; ATTEND Obstetrics & Gynecology
DX: N92.0 Excessive and frequent menstruation with regular cycle (principal); N94.6 Dysmenorrhea, unspecified; D25.9 Leiomyoma of uterus, unspecified; N92.6 Irregular menstruation, unspecified
CPT/HCPCS: 36415; 58552; 80048; 81025; 85007; 85025; 86850; 86900; 86901; 88307; 96374; 96375; 96376; A7015; G0378; G0379; J0780; J1100; J1170; J1885; J2250; J2405; J2704; J2710; J3010; J3490; J7030; J7042; J7120; Q9968; A4461